=== PATIENT | male | born 1995 | race Caucasian/White ===

== ENCOUNTER 2020-05-16 09:16 | Outpatient (REF) | payer OTHER, SELFPAY | END 2020-05-16 09:17 | disposition home or self-care (01) | LOC: HO.HMGCLDS 09:16 | PROVIDERS: Visit Provider Internal Medicine | DX: Z20.828 Contact with and (suspected) exposure to other viral communicable diseases (principal) | CPT/HCPCS: C9803; U0003 ==

== ENCOUNTER 2025-06-17 07:55 | Emergency (ER) | payer OTHER, SELFPAY ==
--- NOTE | ~2025-06-17 | XR_ITS ---
EXAMINATION: XR RIBS 3 VIEWS MINIMUM WITH CHEST RIGHT HISTORY: fell on chest right today, TTP COMPARISON: There are no prior studies available for comparison. FINDINGS: A single PA view of the chest and 3 views of the right ribs are submitted. The lungs are expanded and clear. There is no pleural effusion, pneumothorax, or pulmonary vascular congestion. The heart is normal in size. The right ribs are intact. No fracture is seen. XR/XR ribs RT min 3V w CXR1V IMPRESSION: No evidence of fracture of the right ribs. Electronically signed by: Dagoberto Em MD 06/17/2025 08:44 AM EST
[2025-06-17 08:07] VITALS: BP 180/126; PULSE 91; RESP 20; TEMP 36.3; O2SAT 98; BMI 27.3
--- NOTE | 2025-06-17 08:19 | ED_ITS ---
HPI - Fall General Chief Complaint: Fall Stated Complaint: fell on ice, back pain Time Seen by Provider: 06/17/25 08:11 Source: patient, family and RN notes reviewed Mode of arrival: ambulatory Limitations: no limitations History of Present Illness ED Provider: Gisella HOPSON pa-C HPI Narrative: Cristian is a male who slipped on ice this morning while throwing ice melt on his driveway. He landed on his side, had the wind knocked out of him, and now reports pain primarily in the mid-back paraspinal region and lateral chest wall. Pain is worse with deep inspiration and when he elevates his arms. He denies loss of consciousness, denies use of any blood-thinning medications, denies neck pain, shoulder pain, elbow pain, or vomiting blood. No previous self-treatment taken prior to arrival. He reports that he fell and hit his head last year doing the same thing. Review of Systems: * Musculoskeletal: Positive mid-back and chest wall pain. * Respiratory: Pain with deep inspiration; no baseline shortness of breath reported. * Neurologic: Denies loss of consciousness. * GI: Denies hematemesis. * Neck: Denies neck pain or stiffness. * Extremities: Denies shoulder or elbow pain. Related Data Previous Rx's ?Medication ?Instructions ?Recorded cyclobenzaprine 10 mg tablet 10 mg PO TID PRN muscle s pasm #15 06/17/25 tabs lidocaine 5 % topical patch 1 patch topical DAILY pain #30 ea 06/17/25 meloxicam 15 mg tablet 15 mg PO DAILY 14 days #14 t abs 06/17/25 Allergies Allergy/AdvReac Type Severity Reaction Status Date / Time No Known Allergies Allergy Verified 06/17/25 08:11 Review of Systems Review of Systems: Yes all other systems are reviewed and are negative [facility] Past Medical History Attestation statement: The following information was validated with the patient. Source: old records reviewed and nursing notes reviewed Social History Social History Advance Directives: No Advance Directives Information Provided: No Do you have a plan to hurt others: No Plan Physical Exam Exam: Exam: * General: Alert and conversant, in mild discomfort with deep breathing. * Neck: Full active range of motion without pain; neurologic strength intact in upper extremities. * Back: Tenderness over mid-thoracic paraspinal muscles; no midline spinal tenderness. * Chest Wall: Tenderness over lateral chest bilaterally, worse on right (patient localized ?this side of chest cavity?); pain reproduced with arm elevation. * Pelvis: Non-tender to palpation. * Shoulder/Elbow: No tenderness; full range of motion. * Lungs: Breath sounds auscultated; no obvious wheezes or crackles noted; patient able to take deep breaths with pain. Vital Signs: Vital Signs: Last Vital Signs Temp 98.3 F 06/17/25 09:54 Pulse 83 06/17/25 09:54 Resp 20 06/17/25 09:54 BP 160/102 H 06/17/25 09:54 Pulse Ox 98 06/17/25 09:54 O2 Del Method Room Air 06/17/25 09:54 BMI result Body Mass Index 27.3 Medical Decision Making Medical Decision Making MDM Narrative: Patient arrived to ED in no acute distress after slip and fall without head s trike on ice. RME done by myself in triage. Chest X-ray obtained: no definite acute rib fracture identified; possible 10th rib fracture considered but not clinically significant. No pneumothorax or h emothorax visualized. Patient remained hemodynamically stable. Administered meloxicam for pain control in the ED. Provided lidocaine patches. Counseling given regarding potential delayed pneumothorax and need to return if worsening shortness of breath or increased pain. Discussed importance of deep breathing/chest physiotherapy. Work excuse note provided. Cristian presented after a mechanical fall with mid-back and chest pain, raising concern for possible rib fracture and associated complications such as pneumothorax. A chest X-ray was obtained to evaluate for acute rib fracture and pneumothorax, given the mechanism of injury and focal chest wall tenderness. Imaging did not reveal any acute rib fracture or pneumothorax, and the patient remained hemodynamically stable throughout the evaluation. Pain was managed with meloxicam and lidocaine patches, chosen for their efficacy and safety in musculoskeletal and chest wall injuries. The patient was counseled extensively on the risk of delayed pneumothorax and instructed to return for worsening shortness of breath or chest pain. Discharge was deemed appropriate due to stable vital signs, absence of significant findings on imaging, and adequate pain control, with clear return precautions provided. Assessment & Plan Diagnosis: 1. Thoracic paraspinal strain and chest wall contusion after mechanical fall 2. Possible 10th rib fracture (clinically insignificant) Plan: - Analgesia: Meloxicam administered in the ED. Apply lidocaine patches to painful area. - Activity: Encourage deep breathing exercises/chest physiotherapy to prevent pulmonary complications. - Return precautions: Educated patient to return immediately for worsening shortness of breath, increasing chest pain, or new respiratory symptoms due to risk of delayed pneumothorax. - Work: Work note provided per patient request. - Disposition: Discharge home in stable condition. Disposition Discharged home in stable condition with instructions as above. Follow-up PRN f or persistent or worsening symptoms. Differential Diagnosis Differential Diagnoses: The differential diagnosis associated with the presenta tion includes rib fx pneumothorax/ hemothorax chest wall contusion Admission/Observation Consideration of admission/observation: Escalation of care including admission/observation considered Independent Interpretation I performed an independent interpretation of an: Plain X-Ray Interpretation: no PTX< rib fracture or SHARON Radiology Impression Discussion of test interpretation with radiology: I have reviewed the radiologist's reading. Radiologist Impression: same as prelim Independent Historian Clinical information obtained from an independent historian. History obtained from or confirmed by: Spouse Tests considered The following testing was considered but not selected: would have considered CT CHest for severe trauma Prescription Management I considered prescription management with: Pain Medication Social Determinants Patient?s care significantly limited by Social Determinants of Health including: Other Social Determinant of Health Discharge Plan Discharge Clinical Impression: Chest wall contusion, Blood pressure elevated without history of HTN Patient Disposition: Home, Self-Care Additional Instructions: You were evaluated for an injury to your ribs.? A definitive diagnosis of rib fractures is not always necessary. The presence of isolated rib fractures does not have to be radiologically confirmed in all patients once associated injury has been adequately excluded, typically with a CXR, which is obtained primarily to identify pneumothorax, hemothorax, and other signs of intrathoracic injury. Chest CT demonstrates greater sensitivity and specificity for rib fractures compared with plain radiographs but should not be performed for the sole purpose of assessing potential rib fractures since the clinical significance of these additionally discovered fractures is generally minimal. You had x-rays done: COMPARISON: There are no prior studies available for comparison. FINDINGS: A single PA view of the chest and 3 views of the right ribs are submitted. The lungs are expanded and clear. There is no pleural effusion, pneumothorax, or pulmonary vascular congestion. The heart is normal in size. The right ribs are intact. No fracture is seen. XR/XR ribs RT min 3V w CXR1V IMPRESSION: No evidence of fracture of the right ribs. .?? This can be a very painful injury.?? Rib stress fractures are treated similarly to other low-risk stress fractures. Treatment begins with restriction of the inciting activity for four to six weeks followed by a gradual return to the activity as tolerated. Take Motrin 600mg every 6 hours as needed for pain. Take this with food You can also take Tylenol 650mg orally every 6 hours for pain.? Be sure to take a few full, deep breaths 5-10x hourly until your pain is better and you are breathing normally again without pain.? If you develop any fever, chill, cough, shortness of breath, difficulty breathing, abdominal pain, or any worsening symptoms please go to the Emergency Department. Prescriptions: New lidocaine 5 % adhesive patch,medicated 1 patch topical DAILY Qty: 30 0RF Rx Instructions: leave on most painful area for up to 12 hrs cyclobenzaprine 10 mg tablet 10 mg PO TID PRN (Reason: muscle spasm) Qty: 15 0RF meloxicam 15 mg tablet 15 mg PO DAILY 14 Days Qty: 14 0RF Referrals: Reed Fernandez MD [Primary Care Provider, Medical] Clinical Impression: Chest wall contusion Stand Alone Forms: Work/School Release Interventions: ED Discharge Assessment Last Done: 06/17/25 09:54 Discharge Date/Time: 06/17/25 10:16 Print Language: Estonian
[2025-06-17 09:10] VITALS: BP 161/115; PULSE 83; RESP 20; TEMP 36.8; O2SAT 98
--- OUTSIDE RECORDS SUMMARY | 2025-06-17 09:43 | XMS_ITS | Clinical Summary ---
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 Proteinuria 08/30/2019 Essential (primary) hypertension 08/30/2019 Family History Medical History Relation Comments Diabetes Father Diabetes type II Father Hyperlipidemia Father Hypertension Father Hyperlipidemia Mother Hypertension Mother Relation Status Comments Father Alive Mother Alive Social History Tobacco Use Types Packs/Day Years Used Date Smoking Tobacco: Smoker, Current Status Unknown Alcohol Use Standard Drinks/Week Comments Yes 0 (1 standard drink = 0.6 oz pure alcohol) Alcoholic Drinks/day: Occasional social drink Sex and Gender Information Value Date Recorded Sex Assigned at Not on file Legal Sex Male 10:48 AM EST Gender Identity Not on file Sexual Orientation Not on file Last Filed Vital Signs Vital Sign Reading Time Taken Comments Blood Pressure 128/78 08/30/2019 3:57 PM EDT Pulse 78 08/30/2019 3:57 PM EDT Temperature - - Respiratory Rate 16 08/30/2019 3:57 PM EDT Oxygen Saturation - - Inhaled Oxygen Concentration - - Weight 81.6 kg (180 lb) 08/30/2019 3:57 PM EDT Height 182.9 cm (6') 08/30/2019 3:57 PM EDT Body Mass Index 24.41 08/30/2019 3:57 PM EDT Plan of Treatment Health Maintenance Due Date Last Done Comments Hepatitis B Vaccine (1 of 3 - 19+ 3-dose series) 11/18 Pneumococcal Vaccine: Peds ( 0 to 5 Years) and At-Risk Patients (6 to 49 Years) (2 of 2 - PPSV23, PCV20, or PCV21) 12/19/2014 10/24/2014 Influenza Vaccine (#1) 2025 05/01/2015 Pneumococcal Vaccine: 50+ Years Discontinued 5 Insurance [facility] Care Teams Senior Patrol Agent Relationship Specialty Start Date End Date Reed Fernandez MD [place] [employer] [address] [place] [address] [place] PCP - General Internal Medicine 07/23/19
[2025-06-17 09:54] VITALS: BP 160/102; PULSE 83; RESP 20; TEMP 36.8; O2SAT 98
== END 2025-06-17 10:16 | disposition home or self-care (01) ==
PROVIDERS: Emergency Provider Emergency Medicine; PCP Internal Medicine
DX: S20.213A Contusion of bilateral front wall of thorax, initial encounter (principal); R07.89 Other chest pain; M54.50 Low back pain, unspecified; W00.0XXA Fall on same level due to ice and snow, initial encounter; Y93.01 Activity, walking, marching and hiking; Y92.9 Unspecified place or not applicable; Y99.8 Other external cause status
CPT/HCPCS: 71101; 99282; 99283

== ENCOUNTER → 2025-06-17 08:20 | Outpatient (BNV) | payer OTHER, SELFPAY | PROVIDERS: Emergency Provider Emergency Medicine; PCP Internal Medicine; Visit Provider Radiology Diagnostic Radiology | DX: R07.89 Other chest pain (principal) | CPT/HCPCS: 71101 ==